=== PATIENT | female | born 1945 | race Caucasian/White ===

== ENCOUNTER 2019-07-24 08:01 | Observation (INO) ==
[2019-07-24] MEDS ORDERED: *HR* Promethazine 25 MG/ML VIAL IVP PRN ×2 (08:50→14:07)
[2019-07-24] MEDS ORDERED: Ondansetron 4 MG/2 ML VIAL IVP PRN ×2 (08:50→14:07)
[2019-07-24] MEDS ORDERED: *HR* HYDROmorphone (PF) 1 MG/ML SYRINGE IVP PRN (08:50)
[2019-07-24] MEDS ORDERED: Gabapentin 100 MG CAPSULE PO ONE (08:50)
[2019-07-24] MEDS ORDERED: *HR* Labetalol 20 MG/4 ML SYRINGE IVP PRN (08:50)
[2019-07-24] MEDS ORDERED: Famotidine 20 MG/2 ML VIAL IVP ONE (08:58)
[2019-07-24] MEDS ORDERED: CeFAZolin Syr 2,000MG/20 ML 2,000 MG/20 ML SYRINGE IVPB ONE (09:08)
[2019-07-24] MEDS ORDERED: *HR* Succinylcholine 200 MG/10 ML VIAL IVP ONE (09:31)
[2019-07-24] MEDS ORDERED: *HR* Rocuronium Bromide 50 MG/5 ML VIAL ONE (09:32)
[2019-07-24] MEDS ORDERED: Lidocaine -MPF 4% 5 ML AMPUL ONE (09:33)
[2019-07-24] MEDS ORDERED: *HR* FentaNYL (PF) 100 MCG/2 ML VIAL ONE (09:35)
[2019-07-24] MEDS ORDERED: Ondansetron 4 MG/2 ML VIAL ONE (09:37)
[2019-07-24 09:41] LABS: Hematocrit 32.7 % (35.3-44.9); Hemoglobin 10.1 g/dL (11.5-15.4)
[2019-07-24] MEDS: Ringers Solution, Lactated 1,000 ML IVC SCH ×2 (09:48→12:15)
[2019-07-24] MEDS ORDERED: Propofol 500 MG/50 ML INFUS..BTL ONE (10:24)
[2019-07-24] MEDS ORDERED: *HR* Midazolam HCl 2 MG/2 ML VIAL ONE (10:34)
[2019-07-24] MEDS ORDERED: Tranexamic Acid 1,000 MG/10 ML VIAL ONE (11:48)
[2019-07-24] MEDS ORDERED: *HR* PHENYLEPHRINE 1,000 MCG/10 ML SYRINGE IVP ONE (11:50)
[2019-07-24] MEDS ORDERED: EPHEDrine 50 MG/ML VIAL ONE (12:06)
[2019-07-24] MEDS ORDERED: *HR* Vasopressin 20 UNIT/ML VIAL ONE (12:14)
[2019-07-24] MEDS ORDERED: Ethanol\\Acetic Acid\\Na Ace\\Ben 1,000 ML IRRIG.SOLN IR ONE (13:11)
[2019-07-24] MEDS ORDERED: Sennosides 8.6 MG TABLET PO PRN (14:07)
[2019-07-24] MEDS ORDERED: *HR* Dextrose 50 % in Water (Syg) 50 ML SYRINGE IVP PRN (14:07)
[2019-07-24] MEDS ORDERED: *HR* OxyCODONE Immed Rel 5 MG TABLET PO PRN (14:07)
[2019-07-24] MEDS ORDERED: D5% in Water 1,000 ML IVC PRN (14:07)
[2019-07-24] MEDS ORDERED: Naloxone 0.4 MG/ML INJ IVP PRN (14:07)
[2019-07-24] MEDS ORDERED: MOM Conc 10 ML UD.LIQ PO PRN (14:07)
[2019-07-24] MEDS ORDERED: Dextrose Gel 15 GM/37.5 ML TUBE PO PRN ×2 (14:07)
[2019-07-24] MEDS ORDERED: Ringers Solution, Lactated 1,000 ML IVC SCH (14:07)
[2019-07-24] MEDS ORDERED: HYDROcodone BIT/Homatropine 5 MG TABLET PO PRN (14:07)
[2019-07-24] MEDS ORDERED: Multivit/Ca/Min/Fe/FA 1 TAB TABLET PO SCH (14:15)
[2019-07-24 14:57] LABS: Hematocrit 25.6 % (35.3-44.9)
[2019-07-24 15:03] LABS: Hemoglobin 8.3 g/dL (11.5-15.4)
[2019-07-24] MEDS: Ascorbic Acid 500 MG TABLET PO SCH (16:33)
[2019-07-24] MEDS: Insulin LISPRO 300 UNITS/3 ML VIAL SQ SCH ×3 (16:35→20:27)
[2019-07-24] MEDS: ceFAZolin 2,000 MG in 0.9 % Sodium Chloride 100 ML IVPB SCH (19:40)
[2019-07-24] MEDS: GlipiZIDE 5 MG TABLET PO SCH (20:53)
[2019-07-24] MEDS: *HR* Metformin 500 MG TABLET PO SCH (20:53)
[2019-07-25] MEDS: ceFAZolin 2,000 MG in 0.9 % Sodium Chloride 100 ML IVPB SCH (03:42)
[2019-07-25 06:33] LABS: Basophils % 0.3 %; Eosinophils % 0.6 %; Hematocrit 24.5 % (35.3-44.9); Hemoglobin 7.5 g/dL (11.5-15.4); Immature Granulocytes % 0.4 % (0-4); Lymphocytes # 1.4 K/mcL (0.6-4.6); Lymphocytes % 20.4 %; Mean Corpuscular HGB Conc 30.6 g/dL (31.6-35.5); Mean Corpuscular Hemoglobin 29.3 pg (28.0-33.3); Mean Corpuscular Volume 95.7 fL (83.0-100.0); Mean Platelet Volume 8.7 fL (9.4-12.4); Monocytes # 0.4 K/mcL (0.0-1.3); Monocytes % 5.8 %; Neutrophils # 5.1 K/mcL (1.6-8.9); Platelet Count 244 K/mcL (140-400); Red Blood Count 2.56 M/mcL (3.82-4.97); Segmented Neutrophils % 72.5 %
[2019-07-25 06:47] LABS: BUN/Creatinine Ratio 23 (6-26); Blood Urea Nitrogen 24 mg/dL (8-23); Calcium 8.2 mg/dL (8.6-10.3); Carbon Dioxide 25 mEq/L (23-29); Chloride 102 mEq/L (98-107); Glucose 181 mg/dL (70-105); Osmolality,Calculated 291 (280-300); Potassium 4.8 mEq/L (3.5-5.1); Sodium 136 mEq/L (136-145); eGFR For African Americans > 60 (> 60); eGFR For Non-African Americans 52 (> 60)
[2019-07-25] MEDS: Insulin LISPRO 300 UNITS/3 ML VIAL SQ SCH ×4 (08:29→20:30)
[2019-07-25] MEDS: GlipiZIDE 5 MG TABLET PO SCH ×2 (08:32→20:30)
[2019-07-25] MEDS: Aspirin Enteric Coated 81 MG Tablet PO SCH ×2 (08:32→08:57)
[2019-07-25] MEDS: *HR* Metformin 500 MG TABLET PO SCH ×2 (08:32→20:30)
[2019-07-25] MEDS: Multivit/Ca/Min/Fe/FA 1 TAB TABLET PO SCH (08:32)
[2019-07-25] MEDS: Ascorbic Acid 500 MG TABLET PO SCH ×2 (08:33→17:11)
[2019-07-25] MEDS: hydroCHLOROthiazide 25 MG TABLET PO SCH (08:33)
[2019-07-25 12:50] LABS: Hematocrit 27.1 % (35.3-44.9); Hemoglobin 8.6 g/dL (11.5-15.4)
[2019-07-26 02:08] LABS: Basophils % 0.1 %; Eosinophils # 0.1 K/mcL (0.0-0.6); Hematocrit 24.3 % (35.3-44.9); Hemoglobin 7.8 g/dL (11.5-15.4); Immature Granulocytes % 0.4 % (0-4); Lymphocytes # 1.6 K/mcL (0.6-4.6); Lymphocytes % 17.2 %; Mean Corpuscular HGB Conc 32.1 g/dL (31.6-35.5); Mean Corpuscular Hemoglobin 29.2 pg (28.0-33.3); Mean Platelet Volume 8.8 fL (9.4-12.4); Monocytes # 0.5 K/mcL (0.0-1.3); Monocytes % 5.6 %; Neutrophils # 6.9 K/mcL (1.6-8.9); Platelet Count 269 K/mcL (140-400); Red Blood Count 2.67 M/mcL (3.82-4.97); Red Cell Distribution Width 16.3 % (11.5-14.5); Segmented Neutrophils % 75.7 %; White Blood Count 9.2 K/mcL (4.3-11.1)
[2019-07-26 02:16] LABS: BUN/Creatinine Ratio 23 (6-26); Blood Urea Nitrogen 24 mg/dL (8-23); Calcium 8.3 mg/dL (8.6-10.3); Carbon Dioxide 23 mEq/L (23-29); Chloride 103 mEq/L (98-107); Glucose 137 mg/dL (70-105); Osmolality,Calculated 284 (280-300); Potassium 4.1 mEq/L (3.5-5.1); Sodium 134 mEq/L (136-145); eGFR For African Americans > 60 (> 60); eGFR For Non-African Americans 52 (> 60)
[2019-07-26] MEDS: Aspirin Enteric Coated 81 MG Tablet PO SCH (07:58)
[2019-07-26] MEDS: Ascorbic Acid 500 MG TABLET PO SCH (07:59)
[2019-07-26] MEDS: GlipiZIDE 5 MG TABLET PO SCH (08:00)
[2019-07-26] MEDS: *HR* Metformin 500 MG TABLET PO SCH (08:00)
[2019-07-26] MEDS: Multivit/Ca/Min/Fe/FA 1 TAB TABLET PO SCH (08:02)
[2019-07-26] MEDS: hydroCHLOROthiazide 25 MG TABLET PO SCH (08:03)
[2019-07-26] MEDS: Insulin LISPRO 300 UNITS/3 ML VIAL SQ SCH ×2 (08:06→13:17)
[2019-07-26 13:50] VITALS: BP 129/74
== END 2019-07-26 16:10 | disposition home health service (06) ==
LOC: 3NENU 08:01 → SAMDAY 08:01 → 3NENU 14:24
PROVIDERS: ADMIT Orthopaedic Surgery; ATTEND Orthopaedic Surgery

== ENCOUNTER 2019-09-12 11:04 | Inpatient (IN) ==
[2019-09-12 11:42] LABS: Basophils % 0.5 %; Eosinophils % 0.5 %; Hematocrit 34.6 % (35.3-44.9); Hemoglobin 10.4 g/dL (11.5-15.4); Immature Granulocytes % 0.5 % (0-4); Lymphocytes # 1.9 K/mcL (0.6-4.6); Lymphocytes % 22.1 %; Mean Corpuscular HGB Conc 30.1 g/dL (31.6-35.5); Mean Corpuscular Hemoglobin 27.8 pg (28.0-33.3); Mean Corpuscular Volume 92.5 fL (83.0-100.0); Mean Platelet Volume 8.1 fL (9.4-12.4); Monocytes # 0.4 K/mcL (0.0-1.3); Monocytes % 4.2 %; Neutrophils # 6.2 K/mcL (1.6-8.9); Platelet Count 472 K/mcL (140-400); Red Blood Count 3.74 M/mcL (3.82-4.97); Red Cell Distribution Width 14.7 % (11.5-14.5); Segmented Neutrophils % 72.2 %; White Blood Count 8.6 K/mcL (4.3-11.1)
[2019-09-12] MEDS ORDERED: Ringers Solution, Lactated 1,000 ML IVC SCH ×2 (11:45→16:59)
[2019-09-12 11:54] LABS: Calcium 9.1 mg/dL (8.6-10.3); Potassium 4.8 mEq/L (3.5-5.1)
[2019-09-12] MEDS ORDERED: Famotidine 20 MG/2 ML VIAL IVP ONE (11:59)
[2019-09-12] MEDS ORDERED: Acetaminophen IV 1,000 MG/100 ML INFUS..BTL IVPB ONE (12:00)
[2019-09-12] MEDS ORDERED: *HR* OxyCODONE Immed Rel 5 MG TABLET PO PRN ×2 (12:34→16:59)
[2019-09-12] MEDS ORDERED: Ondansetron 4 MG/2 ML VIAL IVP ONE ×2 (12:34→14:17)
[2019-09-12] MEDS ORDERED: *HR* Propofol 200 MG/20 ML VIAL IVP ONE (13:05)
[2019-09-12] MEDS ORDERED: *HR* FentaNYL (PF) 100 MCG/2 ML VIAL ONE ×2 (13:05→13:56)
[2019-09-12] MEDS ORDERED: Lidocaine -MPF 2% 2 ML VIAL ONE (13:06)
[2019-09-12] MEDS ORDERED: Ondansetron 4 MG/2 ML VIAL ONE (13:06)
[2019-09-12] MEDS ORDERED: *HR* Midazolam HCl 2 MG/2 ML VIAL ONE (13:06)
[2019-09-12] MEDS ORDERED: *HR* Rocuronium Bromide 50 MG/5 ML VIAL ONE (13:06)
[2019-09-12] MEDS ORDERED: Dexamethasone 4 MG/ML VIAL ONE (13:06)
[2019-09-12] MEDS ORDERED: Ethanol\\Acetic Acid\\Na Ace\\Ben 1,000 ML IRRIG.SOLN IR ONE ×2 (13:17→13:59)
[2019-09-12] MEDS ORDERED: *HR* PHENYLEPHRINE 1,000 MCG/10 ML SYRINGE IVP ONE (13:57)
[2019-09-12] MEDS ORDERED: EPHEDrine 50 MG/ML VIAL ONE (14:16)
[2019-09-12] MEDS ORDERED: *HR* Dextrose 50 % in Water (Syg) 50 ML SYRINGE IVP ONE (14:48)
[2019-09-12 15:34] LABS: Hematocrit 28.2 % (35.3-44.9)
[2019-09-12 15:38] LABS: Hemoglobin 8.5 g/dL (11.5-15.4)
[2019-09-12] MEDS ORDERED: *HR* Dextrose 50 % in Water (Syg) 50 ML SYRINGE IVP PRN (16:59)
[2019-09-12] MEDS ORDERED: Sennosides 8.6 MG TABLET PO PRN (16:59)
[2019-09-12] MEDS ORDERED: Dextrose Gel 15 GM/37.5 ML TUBE PO PRN ×4 (16:59)
[2019-09-12] MEDS ORDERED: *HR* Promethazine 25 MG/ML VIAL IVP PRN (16:59)
[2019-09-12] MEDS ORDERED: Ondansetron 4 MG/2 ML VIAL IVP PRN (16:59)
[2019-09-12] MEDS ORDERED: Naloxone 0.4 MG/ML INJ IVP PRN (16:59)
[2019-09-12] MEDS ORDERED: MOM Conc 10 ML UD.LIQ PO PRN (16:59)
[2019-09-12] MEDS ORDERED: D5% in Water 1,000 ML IVC PRN (16:59)
[2019-09-12] MEDS ORDERED: GlipiZIDE 5 MG TABLET PO SCH (17:30)
[2019-09-12] MEDS: Insulin LISPRO 300 UNITS/3 ML VIAL SQ SCH (17:33)
[2019-09-12] MEDS: Ascorbic Acid 500 MG TABLET PO SCH (17:43)
[2019-09-12] MEDS ORDERED: Insulin LISPRO 300 UNITS/3 ML VIAL SQ SCH (21:00)
[2019-09-12] MEDS: *HR* Metformin 500 MG TABLET PO SCH (21:26)
[2019-09-12] MEDS: HYDROcodone BIT/Homatropine 5 MG TABLET PO PRN (21:31)
[2019-09-13 02:28] LABS: Basophils % 0.1 %; Hematocrit 26.6 % (35.3-44.9); Hemoglobin 8.3 g/dL (11.5-15.4); Immature Granulocytes % 0.3 % (0-4); Lymphocytes % 14.3 %; Mean Corpuscular HGB Conc 31.2 g/dL (31.6-35.5); Mean Platelet Volume 8.3 fL (9.4-12.4); Monocytes # 0.1 K/mcL (0.0-1.3); Monocytes % 1.4 %; Neutrophils # 5.9 K/mcL (1.6-8.9); Platelet Count 377 K/mcL (140-400); Red Blood Count 2.86 M/mcL (3.82-4.97); Red Cell Distribution Width 14.5 % (11.5-14.5); Segmented Neutrophils % 83.9 %
[2019-09-13 05:42] LABS: Calcium 8.3 mg/dL (8.6-10.3); Potassium 6.4 mEq/L (3.5-5.1)
[2019-09-13] MEDS: Insulin LISPRO 300 UNITS/3 ML VIAL SQ SCH ×3 (07:45→17:05)
[2019-09-13] MEDS: Aspirin Enteric Coated 81 MG Tablet PO SCH (07:49)
[2019-09-13] MEDS: *HR* Metformin 500 MG TABLET PO SCH (07:50)
[2019-09-13] MEDS: Ascorbic Acid 500 MG TABLET PO SCH ×2 (07:51→17:33)
[2019-09-13 08:17] LABS: Thyroid Stimulating Hormone 1.936 mcIU/mL (0.340-5.600)
[2019-09-13] MEDS ORDERED: Multivit/Ca/Min/Fe/FA 1 TAB TABLET PO SCH (09:00)
[2019-09-13] MEDS ORDERED: hydroCHLOROthiazide 25 MG TABLET PO SCH (09:00)
[2019-09-13] MEDS ORDERED: NON-FORMULARY MEDICATION 1 EACH EACH (Mv-Min/Iron/Folic/Calcium/Vitk [Women's Multivitamin PO SCH (09:00)
[2019-09-13] MEDS: Insulin DETEMIR 100 UNIT/ML X5UNITS SQ SCH (21:54)
[2019-09-14 01:13] LABS: Basophils % 0.1 %; Eosinophils # 0.2 K/mcL (0.0-0.6); Eosinophils % 2.1 %; Hematocrit 24.6 % (35.3-44.9); Hemoglobin 7.5 g/dL (11.5-15.4); Immature Granulocytes % 0.2 % (0-4); Lymphocytes # 2.1 K/mcL (0.6-4.6); Mean Corpuscular HGB Conc 30.5 g/dL (31.6-35.5); Mean Corpuscular Volume 91.8 fL (83.0-100.0); Mean Platelet Volume 8.1 fL (9.4-12.4); Monocytes # 0.4 K/mcL (0.0-1.3); Monocytes % 5.4 %; Neutrophils # 5.4 K/mcL (1.6-8.9); Platelet Count 337 K/mcL (140-400); Red Blood Count 2.68 M/mcL (3.82-4.97); Red Cell Distribution Width 14.6 % (11.5-14.5); Segmented Neutrophils % 66.2 %; White Blood Count 8.2 K/mcL (4.3-11.1)
[2019-09-14 01:33] LABS: Calcium 8.2 mg/dL (8.6-10.3); Potassium 4.5 mEq/L (3.5-5.1)
[2019-09-14] MEDS: HYDROcodone BIT/Homatropine 5 MG TABLET PO PRN (07:50)
[2019-09-14] MEDS: Ascorbic Acid 500 MG TABLET PO SCH (07:51)
[2019-09-14] MEDS: Aspirin Enteric Coated 81 MG Tablet PO SCH (07:51)
[2019-09-14] MEDS: Insulin LISPRO 300 UNITS/3 ML VIAL SQ SCH ×2 (08:10→12:38)
[2019-09-14] MEDS ORDERED: Lidocaine -MPF 1% 5 ML AMPUL INFILT ONE (08:32)
[2019-09-14] MEDS: Insulin DETEMIR 100 UNIT/ML X5UNITS SQ SCH (09:28)
[2019-09-14 13:48] VITALS: BP 131/71
[2019-09-14] MEDS ORDERED: Aminoglycoside Consult 1 EACH MC ONE (16:16)
== END 2019-09-14 16:17 | disposition home health service (06) | DRG 908 ==
LOC: SAMDAY 11:04 → 3NENU 15:51
PROVIDERS: ADMIT Orthopaedic Surgery; ATTEND Orthopaedic Surgery